=== PATIENT | female | born 2000 | race Caucasian/White ===

== ENCOUNTER 2024-02-15 12:33 | Emergency (ER) | payer MEDICAID | END 2024-02-15 13:32 | disposition home or self-care (01) | LOC: DL.ED 12:33 | DX: G93.31 Postviral fatigue syndrome (principal) | CPT/HCPCS: 99282; 99283 ==

== ENCOUNTER 2024-02-23 11:09 | Emergency (ER) | payer MEDICAID ==
[2024-02-23] MEDS: Take Home: Amoxicillin/Clavulanate K 875-125 MG Tab, 6 Tab Pack PO ONE (12:23)
== END 2024-02-23 12:36 | disposition home or self-care (01) ==
LOC: DL.ED 11:09
DX: J02.0 Streptococcal pharyngitis (principal); F17.210 Nicotine dependence, cigarettes, uncomplicated
CPT/HCPCS: 87430; 99283; A9270

== ENCOUNTER 2024-06-12 14:21 | Emergency (ER) | payer MEDICAID | END 2024-06-12 15:11 | disposition home or self-care (01) | LOC: DL.ED 14:21 | DX: H66.92 Otitis media, unspecified, left ear (principal); H72.92 Unspecified perforation of tympanic membrane, left ear; R09.81 Nasal congestion; F17.210 Nicotine dependence, cigarettes, uncomplicated | CPT/HCPCS: 99283 ==